=== PATIENT | male | born 1985 ===

== ENCOUNTER 2019-08-17 07:34 | Outpatient (REF) | payer MEDICAID, SELFPAY ==
[2019-08-17 19:07] LABS: ALT 20 U/L (16-63); AST 15 U/L (15-37); Alkaline Phosphatase 57 U/L (46-116); Anion Gap 7.7 mmol/L (3-11); BUN 13 mg/dL (7-18); Bilirubin, Total 0.5 mg/dL (0.2-1.0); CO2 29.3 mmol/L (21.0-32.0); CREATININE 0.95 mg/dL (0.70-1.30); Calcium 8.6 mg/dL (8.5-10.1); Chloride 103 mmol/L (98-107); Glucose 108 mg/dL (74-106); Potassium 4.4 mmol/L (3.5-5.1); Sodium 140 mmol/L (136-145); Total Protein 6.7 g/dL (6.4-8.2); Uric Acid 6.3 mg/dL (3.5-7.2)
[2019-08-17 19:20] LABS: Calculated LDL 152 mg/dL (<100); Cholesterol 238 mg/dL (<200); HDL Cholesterol 62 mg/dL (40-60); Triglyceride 121 mg/dL (<150)
== END 2019-08-17 07:54 ==
LOC: NCHCN 07:34
PROVIDERS: Visit Provider Physician Assistant
DX: I10 Essential (primary) hypertension (principal); M13.80 Other specified arthritis, unspecified site
CPT/HCPCS: 80053; 80061; 84550

== ENCOUNTER 2020-01-11 19:57 | Outpatient (REF) | payer MEDICAID, SELFPAY ==
[2020-01-15 19:59] LABS: SARS-CoV-2 RNA Undetected (Undetected); SARS-CoV-2 Specimen Source Nasal
== END 2020-01-11 20:17 ==
LOC: NCHCN 19:57
PROVIDERS: Visit Provider Nurse Practitioner Family
DX: Z20.828 Contact with and (suspected) exposure to other viral communicable diseases (principal)
CPT/HCPCS: U0003

== ENCOUNTER 2020-09-11 18:19 | Outpatient (REF) | payer MEDICAID, SELFPAY ==
--- NOTE | 2020-09-11 16:50 | SKI_PTH ---
PATIENT: Rivas Le [facility] [id number] AGE/SX: 35/M ROOM: RE09/11/[address]: Lg Conde : 1985 BED: DIS: 09/11/2020 SPEC #: [id number] RECD: 09/12/20 12:20 STATUS: JANIYA REQ #: [id number] BRITTNEE: 09/11/20 16:[address]: Lg Conde DEPT: Surgical Specimen RECD BY: Shena Montgomery ENTERED: 09/12/20 12:21 SP TYPE: SKI OTHR DR: Unknown,Unknown Tissues: 1 - SKIN BIOPSY(SHAVE/PUNCH) Procedures: SKIN LEVEL 4 Comments: [id number]
== END 2020-09-11 18:20 | disposition home or self-care (01) ==
LOC: NCHCN 18:19
PROVIDERS: Visit Provider Physician Assistant
DX: L56.8 Other specified acute skin changes due to ultraviolet radiation (principal); L85.8 Other specified epidermal thickening
CPT/HCPCS: 88305

== ENCOUNTER 2023-08-18 18:33 | Outpatient (REF) | payer MEDICAID, SELFPAY ==
[2023-08-18 21:24] LABS: BUN 11 mg/dL (7-18); CREATININE 0.8 mg/dL (0.70-1.30); Calcium 9.1 mg/dL (8.5-10.1); Chloride 99 mmol/L (98-107); Estimated GFR 114.74 (mL/min/1.73m2); Glucose 93 mg/dL (74-106); Potassium 4.7 mmol/L (3.5-5.1); Sodium 138 mmol/L (136-145)
[2023-08-18 21:28] LABS: Hemoglobin A1C 5.4 % (<5.7)
== END 2023-08-18 18:34 | disposition home or self-care (01) ==
LOC: NCHCN 18:33
PROVIDERS: Visit Provider Physician Assistant Medical
DX: G62.89 Other specified polyneuropathies (principal); R73.09 Other abnormal glucose
CPT/HCPCS: 80048; 83036